=== PATIENT | female | born 1960 | race Caucasian/White ===

== ENCOUNTER 2019-10-19 10:11 | Inpatient (IN) | payer BC, SELFPAY ==
[2019-10-19] MEDS ORDERED: Lorazepam 2 MG/ML VIAL ONE (10:20)
[2019-10-19 10:42] LABS: #Basophils 0.1 thou/uL (0.0-0.2); #Eosinphils 0.3 thou/uL (0.0-0.7); #Lymphocytes 1.6 thou/uL (1.20-3.40); #Monocytes 0.6 thou/uL (0.11-0.59); #Neutrophils 5.6 thou/uL (1.40-6.50); %Basophils 1.2 % (0.0-1.0); %Eosinophils 4.2 % (0.0-10.0); %Lymphocytes 19.5 % (21.0-51.0); %Monocytes 6.8 % (0.0-10.0); %Neutrophils 68.3 % (42.0-75.0); Hemoglobin 11.5 g/dL (12.0-16.0); Mean Corpuscular HGB CONC 32.7 g/dL (32.0-36.0); Mean Corpuscular Hemoglobin 30.5 pg (27.0-31.0); Mean Corpuscular Volume 93.1 fL (78.0-98.0); Mean Platelet Volume 7.2 fL (7.4-10.4); Platelet Count 289 thou/uL (130-400); RBC Distribution Width 12.9 % (11.5-14.5); Red Blood Cell (RBC) Count 3.79 mill/uL (4.20-5.40); White Blood Cell (WBC) Count 8.2 thou/uL (4.8-10.8)
[2019-10-19 10:53] LABS: PTT 39.9 SEC (22.9-36.1); Prothrombin Time 12.7 SEC (12.0-14.7)
--- NOTE | 2019-10-19 10:58 | CT ---
CT ANGIOGRAM NECK WITH CONTRAST CT ANGIOGRAM BRAIN WITH CONTRAST: DATE: 10/19/2019 HISTORY: 58-year-old female with acute stroke: Dysarthria and left upper extremity weakness. Dr. Blanco verbally gave this stroke alert protocol report by telephone to Dr. Zaldivar at 10:55 AM 10/19/2019 TECHNIQUE: After IV contrast injection, arterial bolus chasing technique scan performed from AP window to vertex of head. Coronal and sagittal 3-D MIP reconstructions. FINDINGS: Brachiocephalic: No high-grade stenosis. Right subclavian: No high-grade stenosis. Right vertebral: Multifocal predominantly mild stenosis, including at the C6-7 level where there is m oderate stenosis. No high-grade stenosis. Right common carotid: No high-grade stenosis. Right internal carotid: Very tortuous. No significant stenosis at origin. Mild scattered calcified pl aque proximally. No high-grade stenosis., Including carotid siphon. Left subclavian: Extensive noncalcified atherosclerotic irregularity.. No severe stenosis identified. Mid and distal portions obscured by streak artifact from dense contrast material in the left subclavian vein. Left vertebral: No high-grade stenosis. Left common carotid: Origin and very proximal portion obscured by streak artifact from contrast mater ial in left brachiocephalic vein. No high-grade stenosis in the rest of the vessel. Left internal carotid: Tortuous. Scattered mild calcified plaque. No high-grade stenosis. Right MCA: M1 segment: No thrombosis or high-grade stenosis. Right PAULA: Patent A1 and A2 segments. Left MCA: M1 segment: No thrombus or high-grade stenosis. Left PAULA: Patent A1 and A2 segments. Intracranial vertebrals: No high-grade stenosis. Basilar: No high-grade stenosis. Bilateral fire management specialist: Patent P1 and P2 segments. Bilateral AICAs: Proximally patent. Bilateral PICA's: Proximally patent. There is a approximately 1.5 x 1 cm low-attenuation lesion in the anterior [place], at midline and to le ft of midline, consistent with infarction, presumably old. Small focal lacunar infarctions, at least most of which are old, involving right basal ganglia and an terior portion of right internal capsule, and left caudate body and [place] radiata. Approximately 60-75% partial opacification of right maxillary sinus. Osseous mural thickening of righ t maxillary sinus indicates that this is a chronic, long-standing process. IMPRESSION: 1) several lacunar infarctions in bilateral corpus striatum. At least most are probably old. Some on the left are age indeterminate. 2.) Moderate sized infarction of anterior upper hawa. 3) no occlusion or high-grade stenosis of major arteries of neck. 4) no thrombosis or occlusion of M1 segments of middle cerebral arteries. 5) chronic right maxillary sinusitis.
--- NOTE | 2019-10-19 10:59 | CT ---
CT BRAIN WITHOUT CONTRAST: HISTORY: Level I stroke alert. Left-sided weakness and slurred speech. COMPARISON: None. FINDINGS: There are small old infarctions in the right periventricular region adjacent to the frontal horn and right basal ganglia. There are changes of chronic small-vessel ischemic disease in the periventricul ar white matter. No evidence of acute infarct, hemorrhage, hemorrhage, midline shift, or abnormal extraaxial fluid col lections is seen. The ventricular size is normal and the basilar cisterns are patent. The bony calv arium is intact. There is mucosal disease in the paranasal sinuses. IMPRESSION: No CT evidence of acute intracranial process. Discussed over the telephone with ER physician, Dr. Percy Zaldivar, at 10:20 a.m. CODE CR POS: DAMIAN
[2019-10-19 11:07] LABS: ALT (SGPT) 16 U/L (8-55); AST (SGOT) 16 U/L (5-34); Albumin 3.9 g/dL (3.5-5.0); Alkaline Phosphatase 95 U/L (40-110); Anion Gap 10 mmol/L (10-20); BUN (Urea Nitrogen) 22 mg/dL (9.8-20.1); Bilirubin, Total 0.3 mg/dL (0.2-1.2); CK (CPK) 263 U/L (29-168); Calc. Creatinine Clearance 0 mL/min (70-130); Calcium 9.8 mg/dL (7.8-10.44); Carbon Dioxide 24 mmol/L (22-29); Chloride 110 mmol/L (98-107); Estimated GFR-MDRD 41; Globulin 2.5 g/dL (2.4-3.5); Glucose 105 mg/dL (70-105); Protein, Total 6.4 g/dL (6.0-8.3); Sodium 140 mmol/L (136-145)
--- NOTE | 2019-10-19 11:27 | RAD ---
PORTABLE CHEST 1 VIEW: DATE: 10/19/2019. TIME: 10:14 a.m. HISTORY: Level I stroke. Slurred speech. FINDINGS: Comparison is made with th exam of 03/05/2009. The heart size is borderline. The aorta is tortuous. The lungs are expanded without lobar consolidation, pneumothoraces, [place] pulmonary edema, or pleura l effusions. IMPRESSION: No acute process. POS: CORTEZ
[2019-10-19 11:33] LABS: Amphetamine Detected (NotDetected); Barbiturates Screen Not Detected (NotDetected); Benzodiazepine Screen Not Detected (NotDetected); Cocaine Metabolite Screen Not Detected (NotDetected); Medtox Control Line Valid? VALID (VALID); Medtox Reader # READER 4; Methadone Not Detected (NotDetected); Methamphetamine Detected (NotDetected); Opiate Screen Not Detected (NotDetected); Oxycodone Screen Not Detected (NotDetected); Phencyclidine (PCP) Not Detected (NotDetected); THC/Cannabinoid Screen Not Detected (NotDetected); Tricyclic Screen Not Detected (NotDetected)
[2019-10-19] MEDS ORDERED: Aspirin 300 MG Suppository ONE (12:12)
[2019-10-19] MEDS ORDERED: Iopamidol-370 76% 500 ML 1 ML ONE (13:47)
[2019-10-19] MEDS ORDERED: hydrALAZINE 20 MG/ML VIAL SLOW IVP PRN (14:49)
[2019-10-19 16:47] LABS: Troponin I 0.019 ng/mL (< 0.028)
[2019-10-19] MEDS: Sodium Chloride 0.9% 1,000 ML IV SCH (18:16)
[2019-10-19 21:29] LABS: Troponin I 0.032 ng/mL (< 0.028)
[2019-10-20] MEDS: Atorvastatin Calcium 40 MG TAB PO SCH ×2 (00:23→20:24)
[2019-10-20] MEDS ORDERED: Acetaminophen 650 MG Suppository PR PRN (02:39)
[2019-10-20] MEDS ORDERED: Lorazepam 2 MG/ML VIAL SLOW IVP SCH (02:45)
[2019-10-20 05:44] LABS: INR-International Normal Ratio 0.9; Prothrombin Time 12.3 SEC (12.0-14.7)
[2019-10-20 05:45] LABS: PTT 40.7 SEC (22.9-36.1)
[2019-10-20 06:04] LABS: Cardiac Risk 3.1 (Less than 4.5)
[2019-10-20] MEDS: Sodium Chloride 0.9% 1,000 ML IV SCH ×2 (07:07→22:02)
[2019-10-20] MEDS: Aspirin 325 mg Enteric Coated Tablet PO SCH (08:03)
[2019-10-20] MEDS: Enoxaparin Sodium 40 MG/0.4 ML SYRINGE SC SCH (08:06)
[2019-10-20] MEDS: Aspirin 300 MG Suppository PR SCH (08:06)
[2019-10-20] MEDS ORDERED: FLU VACC QS2019-20(6MOS UP)/PF 60 MCG/0.5 ML SYRINGE IM ONE (09:00)
--- NOTE | 2019-10-20 09:24 | CON ---
DATE OF CONSULTATION: 10/20/2019 CONSULTING PHYSICIAN: Hospitalist Services. 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 PLAN: 1. Echocardiogram. 2. MRI of the brain. 3. Aspirin and statin. 4. Discontinue methamphetamine use. HISTORY OF PRESENT ILLNESS: Ms. Chambers is a 58-year-old woman with past history of hypertension and prior stroke. She presented with a left-sided weakness and slurred speech and some vision distortion. Initial CT scan of the brain did not show any acute changes. She has some chronic lacunar infarctions present. CT angiogram did not show any stenosis of any significance. Laboratory studies were unremarkable other than a positive tox screen for methamphetamine. PAST MEDICAL HISTORY: Hypertension. ALLERGIES: PENICILLIN. SOCIAL HISTORY: As noted. FAMILY HISTORY: Noncontributory. REVIEW OF SYSTEMS: 10 system review of systems otherwise negative. PHYSICAL EXAMINATION: VITAL SIGNS: Blood pressure 159/85, pulse 62, respirations 14, temperature 98.0. HEENT: Pupils equal. Conjunctivae clear. NECK: Supple. EXTREMITIES: No cyanosis. NEUROLOGIC: She was alert and cooperative. Her speech was mildly dysarthric. She had a left facial droop. There was left-sided weakness. Gait was not tested. No abnormal movements were seen. EKG shows a sinus rhythm. SUMMARY: This is a middle-aged woman, who has hypertension and illicit drug use which has resulted in probable small-vessel stroke and left-sided weakness. Her workup is underway. Job ID: [id number]
--- NOTE | 2019-10-20 09:50 | HP ---
PRESENTING COMPLAINT: Left-sided weakness. HISTORY OF PRESENT ILLNESS: The patient with a past medical history of hypertension, history of CVA with right hemiparesis, hyperlipidemia, asthma, who was seen last night normal, had also slurred speech last night, but woke up with left-sided weakness and brought to the hospital. The patient had left-sided weakness and CT brain showed right-sided multiple infarcts, the patient out of the window and was having complaints this morning. No tPA was offered by ED physician. The patient admitted for further evaluation. The patient complains of cough, also failed swallow evaluation. Complains of swallowing difficulty. Denies any headache or dizziness. Denies nausea, vomiting, diarrhea, or constipation. Denies any chest pain. Complains of shortness of breath. Initial workup in the emergency room, CT brain was negative for acute findings. CTA of brain positive for several lacunar infarctions in bilateral corpus striatum, at least most probably old. Some of the left are age-indeterminate, moderate-sized infarction of anterior upper celest[place]. No occlusion or high-grade stenosis of major arteries of the neck. No thrombosis or occlusion of the M1 segment, middle cerebral arteries. Chronic right maxillary sinusitis. The patient being admitted for further evaluation. REVIEW OF SYSTEMS: As mentioned above in the HPI. All other systems are negative. PAST MEDICAL HISTORY: As mentioned above in the HPI. PAST SURGICAL HISTORY: History of tubal ligation. SOCIAL HISTORY: The patient is an active smoker, smokes half pack a day. Denies any alcohol abuse. Also using crystal . ALLERGIES: TO PENICILLIN. HOME MEDICATIONS: List currently unavailable. OBJECTIVE: VITAL SIGNS: Blood pressure 177/97, pulse 85, respiration 20, oxygen saturation 95 to 97%. Temperature 97.8. GENERAL: The patient lying in bed with left possible facial droop, tongue deviated towards the right side. NECK: Supple. No JVD. No lymphadenopathy. CHEST: Normal vesicular breathing. No rhonchi. No wheezing. HEART: Sounds normal. No murmur or gallop. No rub. ABDOMEN: Soft, benign, and nontender. No visceromegaly. EXTREMITIES: Negative edema of feet; power, left facial droop with left-sided weakness. EKG, normal sinus rhythm, heart rate 89 per minute, T-wave inversions in lateral leads. Nonspecific ST EKG changes. LABORATORY DATA: CBC unremarkable except hemoglobin 11.5, INR 1.0. CMP unremarkable except creatinine of 1.32, baseline creatinine of 0.93; BUN 22, CPK 263. Troponin negative. CBC unremarkable. Urine toxicology positive for amphetamines. UA negative. INR 1.0. CT robinson of [place], several lacunar infarctions in bilateral corpus striatum, at least most probably old. Some of the left are age indeterminate, moderate-sized infarction of anterior upper celestino. No occlusion or high-grade stenosis of the major arteries of the neck. No thrombosis or occlusion of M1 segment or middle cerebral arteries. IMPRESSION: 1. Acute cerebrovascular accident with left hemiparesis. The patient has a history of cerebrovascular accident with right hemiparesis in the past. CT brain negative for acute findings. CTA positive for several lacunar infarctions in bilateral corpus striatum, some of the left are age-indeterminate. We will continue aspirin and statins. Neuro checks, tele monitoring, and echocardiogram. The patient failed swallow evaluation. We will continue IV fluids. Continue aspirin. Repeat speech and swallow evaluation in the morning. 2. History of cerebrovascular accident with right hemiparesis. Continue antiplatelet therapy. Continue supportive care. 3. Hypertension. We will liberate blood pressure at present. We will treat only for more than 220/110. 4. Hyperlipidemia. Continue statin. 5. History of asthma, currently looks compensated. We will use DuoNeb as needed. 6. Deep venous thrombosis and gastrointestinal prophylaxis. PLAN: Discussed with the nursing staff. Job ID: [id number]
--- NOTE | 2019-10-20 11:56 | MRI ---
MRI BRAIN WITHOUT CONTRAST: HISTORY: Slurred speech and left-sided weakness. Previous stroke with residual right arm weakness CORRELATION: CT scan from 10/19/2019 . FINDINGS: Exam is limited due to motion artifact. There is a small focus of restricted diffusion in the left caudate head. There are multiple foci of T 2 prolongation in the periventricular white matter, consistent with chronic small vessel ischemic disease. The ventricular size is appropriate and the basilar cisterns are patent. No evidence of acute transcortical infarct, hemorrhage, midline shift or abnormal extra-axial fluid c ollections is seen. There is mucosal disease in the paranasal sinuses. IMPRESSION: Acute lacunar infarction in the left basal ganglia
--- NOTE | 2019-10-20 15:38 | PDOC.HOSPP ---
- Subjective Encounter Date: 10/20/19 Encounter Time: 15:38 Subjective: Pt seen for followup re: ischemic CVA. c/o LUE and LLE weakness. - Objective Vital Signs & Weight: Vital Signs (12 hours) Temp Pulse Pulse Pulse Pulse Resp BP 10/20/19 11:00 98.1 F 59 L 12 10/20/19 09:42 61 73 61 173/91 H 10/20/19 07:12 98.0 F 62 14 BP BP BP Pulse Ox 10/20/19 11:00 184/91 H 95 10/20/19 09:42 184/93 H 189/88 H 10/20/19 07:12 159/85 H 94 L Weight Admit Weight 182 lb 6.4 oz Weight 181 lb I&O: 10/19/19 10/20/19 10/21/19 06:59 06:59 07:59 Intake Total 825 Output Total 550 Balance 275 Result Diagrams: 10/19/19 10:34 10/19/19 10:34 Additional Labs: Labs and MARs reviewed by me EKG Reviewed by me: Yes (Tele: NSR) Hospitalist ROS - Review of Systems Constitutional: reports: weakness. denies: fever, chills, sweats, malaise Respiratory: denies: cough, shortness of breath, SOB with excertion, pleuritic pain, wheezing Cardiovascular: denies: chest pain, palpitations, orthopnea, paroxysmal noc. dyspnea, edema, light headedness Gastrointestinal: denies: nausea, vomiting, abdominal pain, diarrhea, constipation, melena, hematochezia Genitourinary: denies: dysuria, frequency, incontinence, hematuria, retention Musculoskeletal: denies: neck pain, shoulder pain, arm pain, back pain, hand pain, leg pain, foot pain Neurological: reports: weakness - Medication Medications: Active Medications Generic Name Dose Route Start Last Admin Trade Name Freq PRN Reason Stop Dose Admin Acetaminophen 650 mg 10/20/19 02:39 10/20/19 03:28 Tylenol MN 650 mg Q6H PRN Administration Pain Aspirin 300 mg 10/20/19 09:00 10/20/19 08:06 Aspirin MN 300 mg DAILY CURLY Administration Aspirin 325 mg 10/20/19 09:00 10/20/19 08:03 Ecotrin PO Not Given DAILY CURLY Atorvastatin Calcium 80 mg 10/19/19 21:00 10/20/19 00:23 Lipitor PO Not Given HS CURLY Enoxaparin Sodium 40 mg 10/20/19 09:00 10/20/19 08:06 Lovenox SC 40 mg 0900 CURLY Administration Sodium Chloride 1,000 mls @ 75 mls/hr 10/19/19 15:00 10/20/19 07:07 Normal Saline 0.9% IV 1,000 mls .[id number] CURLY Administration Lorazepam 1 mg 10/20/19 02:45 10/20/19 10:48 Ativan SLOW IVP 10/20/19 20:00 1 mg WILLCALL CURLY Administration - Exam General Appearance: awake alert Eye: anicteric sclera ENT: normocephalic atraumatic Neck: supple, symmetric, no thyromegaly, no lymphadenopathy Heart: RRR, no gallops, no rubs, normal peripheral pulses Respiratory: CTAB, no wheezes, no rales, no ronchi, normal chest expansion Gastrointestinal: soft, non-tender, non-distended, normal bowel sounds Extremities: no cyanosis Neurological - other findings: L sided weakness Psychiatric: normal affect, normal behavior, oriented to person, oriented to place Hosp A/P (1) Neurologic deficit due to acute ischemic cerebrovascular accident (CVA) Code(s): I63.9 - CEREBRAL INFARCTION, UNSPECIFIED; R29.818 - OTHER SYMPTOMS AND SIGNS INVOLVING THE NERVOUS SYSTEM Status: Acute (2) HTN (hypertension) Code(s): I10 - ESSENTIAL (PRIMARY) HYPERTENSION Status: Chronic (3) Dyslipidemia Code(s): E78.5 - HYPERLIPIDEMIA, UNSPECIFIED Status: Chronic (4) Methamphetamine use Code(s): F15.10 - OTHER STIMULANT ABUSE, UNCOMPLICATED Status: Chronic - Plan PT/OT, speech therapy continue aspirin atorvastatin dose increased to 80 mg daily Monitor vital signs, titrate antihypertensives as needed. 2D echo result pending. Family updated by bedside. Pt counseled re; recreational drug use.
[2019-10-21] MEDS: Enoxaparin Sodium 40 MG/0.4 ML SYRINGE SC SCH (08:38)
[2019-10-21] MEDS: Aspirin 325 mg Enteric Coated Tablet PO SCH (08:39)
[2019-10-21] MEDS: Aspirin 300 MG Suppository PR SCH (08:39)
[2019-10-21] MEDS ORDERED: hydrALAZINE 25 MG TAB PO SCH (12:30)
[2019-10-21] MEDS ORDERED: Amlodipine 10 MG TAB PO SCH (12:30)
--- NOTE | 2019-10-21 12:35 | PDOC.HOSPP ---
- Subjective Encounter Date: 10/21/19 Encounter Time: 07:00 Subjective: Pt seen for followup re: CVA. c/o ongoing left-sided weakness. NPO this morning. - Objective Vital Signs & Weight: Vital Signs (12 hours) Temp Pulse Resp BP Pulse Ox 10/21/19 11:28 98.4 F 65 17 193/95 H 95 10/21/19 07:08 98.8 F 65 14 165/87 H 94 L 10/21/19 03:26 97.9 F 72 18 164/84 H 94 L Weight Admit Weight 182 lb 6.4 oz Weight 182 lb 9.6 oz I&O: 10/20/19 10/21/19 10/22/19 05:59 06:59 06:59 Intake Total Output Total Balance Result Diagrams: 10/19/19 10:34 10/19/19 10:34 Additional Labs: Labs and MARs reviewed by me EKG Reviewed by me: Yes (Tele: NSR) Hospitalist ROS - Review of Systems Respiratory: denies: cough, shortness of breath, SOB with excertion, pleuritic pain Cardiovascular: denies: chest pain, palpitations, orthopnea, paroxysmal noc. dyspnea, edema, light headedness Gastrointestinal: denies: nausea, vomiting, abdominal pain, diarrhea, constipation, melena, hematochezia Genitourinary: denies: dysuria, frequency, incontinence, hematuria, retention Skin: denies: rash, lesions, tl, bruising Neurological: reports: weakness. denies: numbness, incoordination, change in speech, confusion, seizures - Medication Medications: Active Medications Generic Name Dose Route Start Last Admin Trade Name [place] PRN Reason Stop Dose Admin Acetaminophen 650 mg 10/20/19 02:39 10/20/19 03:28 Tylenol MD 650 mg Q6H PRN Administration Pain Aspirin 325 mg 10/20/19 09:00 10/21/19 08:39 Ecotrin PO Not Given DAILY CURLY Atorvastatin Calcium 80 mg 10/19/19 21:00 10/20/19 20:24 Lipitor PO Not Given HS CURLY Enoxaparin Sodium 40 mg 10/20/19 09:00 10/21/19 08:38 Lovenox SC 40 mg 0900 CURLY Administration Sodium Chloride 1,000 mls @ 75 mls/hr 10/19/19 15:00 10/20/19 22:02 Normal Saline 0.9% IV 1,000 mls .[id number] CURLY Administration - Exam General Appearance: awake alert Eye: anicteric sclera ENT: moist mucosa Neck: supple, no JVD, no thyromegaly, no lymphadenopathy Heart: RRR, no gallops, no rubs, normal peripheral pulses Respiratory: CTAB, no wheezes, no rales, no ronchi, normal chest expansion, no tachypnea Extremities: no clubbing Musculoskeletal: no muscle wasting Musculoskeletal - other findings: LUE and LLE weakness Psychiatric: normal affect, normal behavior, oriented to person, oriented to place Hosp A/P (1) Neurologic deficit due to acute ischemic cerebrovascular accident (CVA) Code(s): I63.9 - CEREBRAL INFARCTION, UNSPECIFIED; R29.818 - OTHER SYMPTOMS AND SIGNS INVOLVING THE NERVOUS SYSTEM Status: Acute (2) HTN (hypertension) Code(s): I10 - ESSENTIAL (PRIMARY) HYPERTENSION Status: Chronic (3) Dyslipidemia Code(s): E78.5 - HYPERLIPIDEMIA, UNSPECIFIED Status: Chronic (4) Methamphetamine use Code(s): F15.10 - OTHER STIMULANT ABUSE, UNCOMPLICATED Status: Chronic - Plan PT/OT, out of bed/ambulate, DVT proph w/lovenox, DVT proph w/SCDs continue aspirin and atorvastatin Add PRN IV labetalol, continue PRN IV hydralazine. LV EF 50-55%, grade 1/3 diastolic dysfunction.
[2019-10-21] MEDS ORDERED: Labetalol HCl 100 MG/20 ML VIAL SLOW IVP PRN (12:36)
[2019-10-21] MEDS: Sodium Chloride 0.9% 1,000 ML IV SCH (12:42)
[2019-10-21] MEDS: Atorvastatin Calcium 40 MG TAB PO SCH (20:52)
[2019-10-21] MEDS: hydrALAZINE 25 MG TAB PO SCH (20:53)
[2019-10-22] MEDS: Sodium Chloride 0.9% 1,000 ML IV SCH ×3 (02:06→21:31)
[2019-10-22] MEDS: hydrALAZINE 25 MG TAB PO SCH ×2 (09:11→21:21)
[2019-10-22] MEDS: Amlodipine 10 MG TAB PO SCH (09:11)
[2019-10-22] MEDS: Aspirin 325 mg Enteric Coated Tablet PO SCH (09:12)
[2019-10-22] MEDS: Enoxaparin Sodium 40 MG/0.4 ML SYRINGE SC SCH (09:12)
--- NOTE | 2019-10-22 13:27 | PDOC.HOSPP ---
- Subjective Encounter Date: 10/22/19 Encounter Time: 07:00 Subjective: Pt seen for followup re: CVA. Reports less weakness in LLE. - Objective Vital Signs & Weight: Vital Signs (12 hours) Temp Pulse Pulse Pulse Resp BP BP 10/22/19 12:19 99.1 F 66 15 10/22/19 10:00 67 10/22/19 09:44 67 69 166/95 H 10/22/19 09:11 63 181/106 H 10/22/19 07:23 99.3 F 63 17 10/22/19 03:02 98.5 F 69 18 BP BP BP BP Pulse Ox 10/22/19 12:19 149/72 H 94 L 10/22/19 10:00 166/95 H 10/22/19 09:44 159/98 H 10/22/19 09:11 10/22/19 07:23 181/106 H 98 10/22/19 03:02 133/71 95 Weight Admit Weight 182 lb 6.4 oz Weight 182 lb 9.6 oz I&O: 10/21/19 10/22/19 10/23/19 06:59 06:59 06:59 Intake Total 1740 120 Output Total 2300 300 Balance -560 -180 Result Diagrams: 10/19/19 10:34 10/19/19 10:34 Additional Labs: Labs and MARs reviewed by me EKG Reviewed by me: Yes (Tele: NSR) Hospitalist ROS - Review of Systems Constitutional: denies: fever, chills, sweats, weakness, malaise Cardiovascular: denies: chest pain, palpitations, orthopnea, paroxysmal noc. dyspnea, edema, light headedness Gastrointestinal: denies: nausea, vomiting, abdominal pain, diarrhea, constipation, melena, hematochezia Skin: denies: rash, lesions, tl, bruising Neurological: reports: weakness - Medication Medications: Active Medications Generic Name Dose Route Start Last Admin Trade Name Freq PRN Reason Stop Dose Admin Acetaminophen 650 mg 10/20/19 02:39 10/20/19 03:28 Tylenol MS 650 mg Q6H PRN Administration Pain Amlodipine Besylate 10 mg 10/22/19 09:00 10/22/19 09:11 Norvasc PO 10 mg DAILY CURLY Administration Aspirin 325 mg 10/20/19 09:00 10/22/19 09:12 Ecotrin PO 325 mg DAILY CURLY Administration Atorvastatin Calcium 80 mg 10/19/19 21:00 10/21/19 20:52 Lipitor PO 80 mg HS CURLY Administration Enoxaparin Sodium 40 mg 10/20/19 09:00 10/22/19 09:12 Lovenox SC 40 mg 0900 CURLY Administration Hydralazine HCl 50 mg 10/21/19 21:00 10/22/19 09:11 Apresoline PO 50 mg BID CURLY Administration Sodium Chloride 1,000 mls @ 75 mls/hr 10/19/19 15:00 10/22/19 02:06 Normal Saline 0.9% IV 1,000 mls .[id number] CURLY Administration - Exam General Appearance: awake alert Eye: anicteric sclera ENT: no oropharyngeal lesions Neck: supple, no JVD, no thyromegaly, no lymphadenopathy Heart: RRR, no gallops, no rubs, normal peripheral pulses Respiratory: CTAB, no wheezes, no rales, no ronchi, normal chest expansion Gastrointestinal: soft, non-tender, non-distended, normal bowel sounds Neurological - other findings: LUE and LLE weakness Psychiatric: normal affect, normal behavior, oriented to person, oriented to place Hosp A/P (1) Neurologic deficit due to acute ischemic cerebrovascular accident (CVA) Code(s): I63.9 - CEREBRAL INFARCTION, UNSPECIFIED; R29.818 - OTHER SYMPTOMS AND SIGNS INVOLVING THE NERVOUS SYSTEM Status: Acute (2) HTN (hypertension) Code(s): I10 - ESSENTIAL (PRIMARY) HYPERTENSION Status: Chronic (3) Dyslipidemia Code(s): E78.5 - HYPERLIPIDEMIA, UNSPECIFIED Status: Chronic (4) Methamphetamine use Code(s): F15.10 - OTHER STIMULANT ABUSE, UNCOMPLICATED Status: Chronic - Plan Pt is on aspirin and atorvastatin HTN improved LV EF 50-55%, grade 1/3 diastolic dysfunction. PT/OT/ST
--- NOTE | 2019-10-22 14:02 | RAD ---
MODIFIED BARIUM SWALLOW IN PRESENCE OF SPEECH THERAPIST: HISTORY: Dysphagia, feeding difficulties FINDINGS: There is laryngeal penetration and aspiration with thin liquids No persistent pooling of contrast is seen in the valleculae or piriform sinuses. Premature spilling of contrast is seen. Please see recommendations of the speech therapist for further management.
[2019-10-22] MEDS: Atorvastatin Calcium 40 MG TAB PO SCH (21:21)
[2019-10-23] MEDS: Amlodipine 10 MG TAB PO SCH (09:53)
[2019-10-23] MEDS: Aspirin 325 mg Enteric Coated Tablet PO SCH (09:54)
[2019-10-23] MEDS: Enoxaparin Sodium 40 MG/0.4 ML SYRINGE SC SCH (09:54)
[2019-10-23] MEDS: hydrALAZINE 25 MG TAB PO SCH ×2 (09:54→20:47)
[2019-10-23] MEDS ORDERED: hydrALAZINE 25 MG TAB PO SCH (14:00)
--- NOTE | 2019-10-23 14:27 | PDOC.HOSPP ---
- Subjective Encounter Date: 10/23/19 Encounter Time: 07:00 Subjective: Pt seen for followup re: acute ischemic CVA. Feels slightly better today. - Objective Vital Signs & Weight: Vital Signs (12 hours) Temp Pulse Pulse Pulse Resp BP BP 10/23/19 11:18 98.3 F 14 10/23/19 11:00 62 10/23/19 09:54 63 186/88 H 10/23/19 09:53 63 186/88 H 10/23/19 09:20 63 64 186/88 H 10/23/19 07:11 98.6 F 60 14 10/23/19 03:05 98 F 60 18 BP BP BP Pulse Ox 10/23/19 11:18 172/95 H 97 10/23/19 11:00 167/89 H 10/23/19 09:54 10/23/19 09:53 10/23/19 09:20 172/95 H 10/23/19 07:11 168/95 H 98 10/23/19 03:05 162/66 H 96 Weight Admit Weight 182 lb 6.4 oz Weight 182 lb 8 oz I&O: 10/22/19 10/23/19 10/24/19 06:59 06:59 06:59 Intake Total 1740 2880 240 Output Total 2300 1700 Balance -560 1180 240 Result Diagrams: 10/19/19 10:34 10/19/19 10:34 Additional Labs: Labs and MARs reviewed by me EKG Reviewed by me: Yes (Tele: NSR) Hospitalist ROS - Review of Systems Constitutional: reports: weakness Cardiovascular: denies: chest pain, palpitations, orthopnea, paroxysmal noc. dyspnea, edema Skin: denies: rash, lesions, tl, bruising Neurological: reports: weakness - Medication Medications: Active Medications Generic Name Dose Route Start Last Admin Trade Name Freq PRN Reason Stop Dose Admin Acetaminophen 650 mg 10/20/19 02:39 10/20/19 03:28 Tylenol IN 650 mg Q6H PRN Administration Pain Amlodipine Besylate 10 mg 10/22/19 09:00 10/23/19 09:53 Norvasc PO 10 mg DAILY CURLY Administration Aspirin 325 mg 10/20/19 09:00 10/23/19 09:54 Ecotrin PO 325 mg DAILY CURLY Administration Atorvastatin Calcium 80 mg 10/19/19 21:00 10/22/19 21:21 Lipitor PO 80 mg HS CURLY Administration Enoxaparin Sodium 40 mg 10/20/19 09:00 10/23/19 09:54 Lovenox SC 40 mg 0900 CURLY Administration Hydralazine HCl 50 mg 10/21/19 21:00 10/23/19 09:54 Apresoline PO 50 mg BID CURLY Administration Labetalol HCl 10 mg 10/21/19 12:36 10/22/19 21:31 Normodyne SLOW IVP 10 mg Q4H PRN Administration SBP Greater Than 180 - Exam General Appearance: awake alert Eye: anicteric sclera ENT: moist mucosa Neck: supple Heart: RRR Respiratory: CTAB Gastrointestinal: soft, non-tender Extremities: no clubbing Neurological: hemiplegia Psychiatric: normal affect, normal behavior Hosp A/P (1) Neurologic deficit due to acute ischemic cerebrovascular accident (CVA) Code(s): I63.9 - CEREBRAL INFARCTION, UNSPECIFIED; R29.818 - OTHER SYMPTOMS AND SIGNS INVOLVING THE NERVOUS SYSTEM Status: Acute (2) HTN (hypertension) Code(s): I10 - ESSENTIAL (PRIMARY) HYPERTENSION Status: Chronic (3) Dyslipidemia Code(s): E78.5 - HYPERLIPIDEMIA, UNSPECIFIED Status: Chronic (4) Methamphetamine use Code(s): F15.10 - OTHER STIMULANT ABUSE, UNCOMPLICATED Status: Chronic - Plan Mild improvement today. Continue aspirin and atorvastatin Pt able to take oral medications today. Resume hydralazine. PT/OT/ST Family updated by bedside.
[2019-10-23] MEDS: Atorvastatin Calcium 40 MG TAB PO SCH (20:47)
[2019-10-24 08:10] LABS: #Eosinphils 0.7 thou/uL (0.0-0.7); #Lymphocytes 1.5 thou/uL (1.20-3.40); #Monocytes 0.5 thou/uL (0.11-0.59); #Neutrophils 3.8 thou/uL (1.40-6.50); %Basophils 0.5 % (0.0-1.0); %Eosinophils 10.3 % (0.0-10.0); %Lymphocytes 23.4 % (21.0-51.0); %Monocytes 7.4 % (0.0-10.0); %Neutrophils 58.4 % (42.0-75.0); Hemoglobin 12.2 g/dL (12.0-16.0); Mean Corpuscular HGB CONC 31.4 g/dL (32.0-36.0); Mean Corpuscular Hemoglobin 29.2 pg (27.0-31.0); Mean Corpuscular Volume 93.2 fL (78.0-98.0); Mean Platelet Volume 7.9 fL (7.4-10.4); Platelet Count 262 thou/uL (130-400); Red Blood Cell (RBC) Count 4.18 mill/uL (4.20-5.40); White Blood Cell (WBC) Count 6.5 thou/uL (4.8-10.8)
[2019-10-24 08:30] LABS: Anion Gap 13 mmol/L (10-20); BUN (Urea Nitrogen) 22 mg/dL (9.8-20.1); Calc. Creatinine Clearance 67 mL/min (70-130); Carbon Dioxide 22 mmol/L (22-29); Chloride 108 mmol/L (98-107); Estimated GFR-MDRD 47; Glucose 87 mg/dL (70-105); Sodium 139 mmol/L (136-145)
[2019-10-24] MEDS: Amlodipine 10 MG TAB PO SCH (09:42)
[2019-10-24] MEDS: hydrALAZINE 25 MG TAB PO SCH ×2 (09:43→22:01)
[2019-10-24] MEDS: Aspirin 325 mg Enteric Coated Tablet PO SCH (09:43)
[2019-10-24] MEDS: Enoxaparin Sodium 40 MG/0.4 ML SYRINGE SC SCH (09:43)
--- NOTE | 2019-10-24 18:30 | PDOC.HOSPP ---
- Subjective Encounter Date: 10/24/19 Encounter Time: 08:00 Subjective: Pt seen for followup re: CVA. Able to lift LUE and LLE off of bed today. - Objective Vital Signs & Weight: Vital Signs (12 hours) Temp Pulse Resp BP BP BP Pulse Ox 10/24/19 15:38 98.4 F 63 16 133/85 94 L 10/24/19 11:49 98.4 F 74 16 149/99 H 94 L 10/24/19 10:14 152/100 H 10/24/19 09:43 66 147/86 H 10/24/19 09:42 66 147/86 H 10/24/19 08:42 93 L Weight Admit Weight 182 lb 6.4 oz Weight 182 lb 4.8 oz I&O: 10/23/19 10/24/19 10/25/19 06:59 06:59 06:59 Intake Total 2880 480 Output Total 1700 400 Balance 1180 480 -400 Result Diagrams: 10/24/19 07:39 10/24/19 07:39 Additional Labs: Labs and MARs reviewed by me EKG Reviewed by me: Yes (Tele: NSR) Hospitalist ROS - Review of Systems Genitourinary: denies: dysuria, frequency, incontinence, hematuria, retention Neurological: reports: weakness. denies: numbness, incoordination, change in speech, confusion, seizures - Medication Medications: Active Medications Generic Name Dose Route Start Last Admin Trade Name Freq PRN Reason Stop Dose Admin Acetaminophen 650 mg 10/20/19 02:39 10/20/19 03:28 Tylenol MI 650 mg Q6H PRN Administration Pain Amlodipine Besylate 10 mg 10/22/19 09:00 10/24/19 09:42 Norvasc PO 10 mg DAILY CURLY Administration Aspirin 325 mg 10/20/19 09:00 10/24/19 09:43 Ecotrin PO 325 mg DAILY CURLY Administration Atorvastatin Calcium 80 mg 10/19/19 21:00 10/23/19 20:47 Lipitor PO 80 mg HS CURLY Administration Enoxaparin Sodium 40 mg 10/20/19 09:00 10/24/19 09:43 Lovenox SC 40 mg 0900 CURLY Administration Hydralazine HCl 50 mg 10/21/19 21:00 10/24/19 09:43 Apresoline PO 50 mg BID CURLY Administration Labetalol HCl 10 mg 10/21/19 12:36 10/22/19 21:31 Normodyne SLOW IVP 10 mg Q4H PRN Administration SBP Greater Than 180 - Exam General Appearance: NAD ENT: normocephalic atraumatic Neck: supple Heart: RRR Respiratory: CTAB Gastrointestinal: soft, non-tender Neurological - other findings: LUE and LLE weakness improving Musculoskeletal: normal tone, normal strength Psychiatric: normal affect, normal behavior Hosp A/P (1) Neurologic deficit due to acute ischemic cerebrovascular accident (CVA) Code(s): I63.9 - CEREBRAL INFARCTION, UNSPECIFIED; R29.818 - OTHER SYMPTOMS AND SIGNS INVOLVING THE NERVOUS SYSTEM Status: Acute (2) HTN (hypertension) Code(s): I10 - ESSENTIAL (PRIMARY) HYPERTENSION Status: Chronic (3) Dyslipidemia Code(s): E78.5 - HYPERLIPIDEMIA, UNSPECIFIED Status: Chronic (4) 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 On aspirin and atorvastatin Continue hydralazine. PT/OT/ST Pt awaiting decision re: SNU placement
[2019-10-24] MEDS: Atorvastatin Calcium 40 MG TAB PO SCH (22:01)
[2019-10-25 05:12] LABS: #Eosinphils 0.6 thou/uL (0.0-0.7); #Lymphocytes 1.9 thou/uL (1.20-3.40); #Monocytes 0.5 thou/uL (0.11-0.59); %Basophils 0.2 % (0.0-1.0); %Eosinophils 8.2 % (0.0-10.0); %Lymphocytes 27.2 % (21.0-51.0); %Monocytes 7.5 % (0.0-10.0); %Neutrophils 56.9 % (42.0-75.0); Hemoglobin 12.1 g/dL (12.0-16.0); Mean Corpuscular HGB CONC 33.5 g/dL (32.0-36.0); Mean Corpuscular Hemoglobin 30.8 pg (27.0-31.0); Mean Corpuscular Volume 91.9 fL (78.0-98.0); Mean Platelet Volume 7.9 fL (7.4-10.4); Platelet Count 255 thou/uL (130-400); RBC Distribution Width 12.9 % (11.5-14.5); Red Blood Cell (RBC) Count 3.91 mill/uL (4.20-5.40)
[2019-10-25 05:40] LABS: Anion Gap 13 mmol/L (10-20); BUN (Urea Nitrogen) 37 mg/dL (9.8-20.1); Calc. Creatinine Clearance 57 mL/min (70-130); Carbon Dioxide 24 mmol/L (22-29); Chloride 109 mmol/L (98-107); Estimated GFR-MDRD 39; Glucose 96 mg/dL (70-105); Magnesium 2.3 mg/dL (1.6-2.6); Potassium 4.1 mmol/L (3.5-5.1); Sodium 142 mmol/L (136-145)
[2019-10-25] MEDS: hydrALAZINE 25 MG TAB PO SCH ×2 (09:17→21:41)
[2019-10-25] MEDS: Enoxaparin Sodium 40 MG/0.4 ML SYRINGE SC SCH (09:17)
[2019-10-25] MEDS: Amlodipine 10 MG TAB PO SCH (09:17)
[2019-10-25] MEDS: Aspirin 325 mg Enteric Coated Tablet PO SCH (09:17)
[2019-10-25] MEDS: Atorvastatin Calcium 40 MG TAB PO SCH (21:44)
--- NOTE | 2019-10-25 22:50 | PDOC.HOSPP ---
- Subjective Encounter Date: 10/25/19 Subjective: Doing well. No specific complaints. She says her mood is up and down. - Objective Vital Signs & Weight: Vital Signs (12 hours) Temp Pulse Resp BP BP BP Pulse Ox 10/25/19 21:41 69 159/93 H 10/25/19 19:18 97.8 F 65 16 148/88 H 97 10/25/19 16:00 98 F 62 20 150/84 H 96 10/25/19 11:22 97.8 F 86 20 151/93 H 99 Weight Admit Weight 182 lb 6.4 oz Weight 183 lb 3.2 oz I&O: 10/24/19 10/25/19 10/26/19 06:59 06:59 06:59 Intake Total 184 811 7882 Output Total 800 Balance 480 -650 1380 Result Diagrams: 10/25/19 04:57 10/25/19 04:57 Hospitalist ROS - Medication Medications: Active Medications Generic Name Dose Route Start Last Admin Trade Name Freq PRN Reason Stop Dose Admin Acetaminophen 650 mg 10/20/19 02:39 10/20/19 03:28 Tylenol SD 650 mg Q6H PRN Administration Pain Amlodipine Besylate 10 mg 10/22/19 09:00 10/25/19 09:17 Norvasc PO 10 mg DAILY CURLY Administration Aspirin 325 mg 10/20/19 09:00 10/25/19 09:17 Ecotrin PO 325 mg DAILY CURLY Administration Atorvastatin Calcium 80 mg 10/19/19 21:00 10/25/19 21:44 Lipitor PO 80 mg HS CURLY Administration Enoxaparin Sodium 40 mg 10/20/19 09:00 10/25/19 09:17 Lovenox SC 40 mg 0900 CURLY Administration Hydralazine HCl 50 mg 10/21/19 21:00 10/25/19 21:41 Apresoline PO 50 mg BID CURLY Administration Labetalol HCl 10 mg 10/21/19 12:36 10/22/19 21:31 Normodyne SLOW IVP 10 mg Q4H PRN Administration SBP Greater Than 180 - Exam General Appearance: NAD, awake alert Heart: RRR, no murmur, no gallops, no rubs, normal peripheral pulses Respiratory: CTAB, no wheezes, no rales, no ronchi, normal chest expansion, no tachypnea, normal percussion Gastrointestinal: soft, non-tender, non-distended, normal bowel sounds, no palpable masses, no hepatomegaly, no splenomegaly, no bruit Extremities: no cyanosis, no clubbing, no edema Neurological - other findings: Left-sided weakness. 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 Awaiting placement.
[2019-10-26] MEDS: Aspirin 325 mg Enteric Coated Tablet PO SCH (09:07)
[2019-10-26] MEDS: Enoxaparin Sodium 40 MG/0.4 ML SYRINGE SC SCH (09:07)
[2019-10-26] MEDS: Amlodipine 10 MG TAB PO SCH (09:07)
[2019-10-26] MEDS: hydrALAZINE 25 MG TAB PO SCH ×2 (09:08→21:45)
--- NOTE | 2019-10-26 15:49 | PDOC.HOSPP ---
- Subjective Encounter Date: 10/26/19 Subjective: About the same. Frustrated because she feels like she would be doing more at home than she is recommended to do here. Otherwise, eating and drinking well. No complaints. - Objective Vital Signs & Weight: Vital Signs (12 hours) Temp Pulse Pulse Pulse Resp BP BP 10/26/19 15:10 98.4 F 76 14 10/26/19 11:16 74 69 142/82 H 138/83 10/26/19 11:12 98.3 F 68 18 10/26/19 09:08 86 10/26/19 09:07 86 10/26/19 09:01 10/26/19 07:10 98.3 F 86 16 BP Pulse Ox 10/26/19 15:10 120/84 94 L 10/26/19 11:16 10/26/19 11:12 138/75 96 10/26/19 09:08 10/26/19 09:07 10/26/19 09:01 97 10/26/19 07:10 158/86 H 96 Weight Admit Weight 182 lb 6.4 oz Weight 184 lb 4.8 oz I&O: 10/25/19 10/26/19 10/27/19 06:59 06:59 06:59 Intake Total 150 1480 Output Total 800 350 700 Balance -650 1130 -700 Result Diagrams: 10/25/19 04:57 10/25/19 04:57 Hospitalist ROS - Medication Medications: Active Medications Generic Name Dose Route Start Last Admin Trade Name Freq PRN Reason Stop Dose Admin Acetaminophen 650 mg 10/20/19 02:39 10/20/19 03:28 Tylenol MO 650 mg Q6H PRN Administration Pain Amlodipine Besylate 10 mg 10/22/19 09:00 10/26/19 09:07 Norvasc PO 10 mg DAILY CURLY Administration Aspirin 325 mg 10/20/19 09:00 10/26/19 09:07 Ecotrin PO 325 mg DAILY CURLY Administration Atorvastatin Calcium 80 mg 10/19/19 21:00 10/25/19 21:44 Lipitor PO 80 mg HS CURLY Administration Enoxaparin Sodium 40 mg 10/20/19 09:00 10/26/19 09:07 Lovenox SC 40 mg 0900 CURLY Administration Hydralazine HCl 50 mg 10/21/19 21:00 10/26/19 09:08 Apresoline PO 50 mg BID CURLY Administration Labetalol HCl 10 mg 10/21/19 12:36 10/22/19 21:31 Normodyne SLOW IVP 10 mg Q4H PRN Administration SBP Greater Than 180 - Exam General Appearance: NAD, awake alert General - other findings: Mild dysarthria Heart: RRR, no murmur, no gallops, no rubs, normal peripheral pulses Respiratory: CTAB, no wheezes, no rales, no ronchi, normal chest expansion, no tachypnea, normal percussion Gastrointestinal: soft, non-tender, non-distended, normal bowel sounds, no palpable masses, no hepatomegaly, no splenomegaly, no bruit Extremities: no cyanosis, no clubbing, no edema Neurological - other findings: LLE and LUE with proximal movement. More distal paralysis. 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 Awaiting placement.
[2019-10-26] MEDS: Atorvastatin Calcium 40 MG TAB PO SCH (21:45)
[2019-10-27] MEDS: Amlodipine 10 MG TAB PO SCH (09:35)
[2019-10-27] MEDS: hydrALAZINE 25 MG TAB PO SCH ×2 (09:35→22:03)
[2019-10-27] MEDS: Enoxaparin Sodium 40 MG/0.4 ML SYRINGE SC SCH (09:36)
[2019-10-27] MEDS: Aspirin 325 mg Enteric Coated Tablet PO SCH (09:36)
[2019-10-27 10:19] VITALS: BMI 26.9
--- NOTE | 2019-10-27 14:29 | PDOC.HOSPP ---
- Subjective Encounter Date: 10/27/19 Encounter Time: 09:00 Subjective: no overnight events. This morning, laying comfortably in bed and has no complaints. - Objective Vital Signs & Weight: Vital Signs (12 hours) Temp Pulse Resp BP BP BP BP 10/27/19 11:18 98.3 F 72 18 129/80 10/27/19 09:35 59 L 159/97 H 10/27/19 07:47 97.9 F 59 L 18 159/97 H 10/27/19 02:50 98.2 F 64 16 156/107 H Pulse Ox 10/27/19 11:18 93 L 10/27/19 09:35 10/27/19 07:47 94 L 10/27/19 02:50 93 L Weight Admit Weight 182 lb 6.4 oz Weight 182 lb 3.2 oz I&O: 10/26/19 10/27/19 10/28/19 06:59 06:59 06:59 Intake Total 1480 120 Output Total 350 700 500 Balance 7893 -700 -063 Result Diagrams: 10/25/19 04:57 10/25/19 04:57 Hospitalist ROS - Review of Systems Constitutional: denies: fever, chills, sweats, weakness, malaise, other Eyes: denies: vision change Respiratory: denies: cough, dry, shortness of breath, hemoptysis, SOB with excertion, pleuritic pain, sputum Cardiovascular: denies: chest pain, palpitations, orthopnea Gastrointestinal: denies: nausea, vomiting, abdominal pain, diarrhea Genitourinary: denies: dysuria, frequency, incontinence, hematuria Neurological: denies: change in speech Other: baseline left sided weakness - Medication Medications: Active Medications Generic Name Dose Route Start Last Admin Trade Name Freq PRN Reason Stop Dose Admin Amlodipine Besylate 10 mg 10/22/19 09:00 10/27/19 09:35 Norvasc PO 10 mg DAILY CURLY Administration Aspirin 325 mg 10/20/19 09:00 10/27/19 09:36 Ecotrin PO 325 mg DAILY CURLY Administration Atorvastatin Calcium 80 mg 10/19/19 21:00 10/26/19 21:45 Lipitor PO 80 mg HS CURLY Administration Enoxaparin Sodium 40 mg 10/20/19 09:00 10/27/19 09:36 Lovenox SC 40 mg 0900 CURLY Administration Hydralazine HCl 50 mg 10/21/19 21:00 10/27/19 09:35 Apresoline PO 50 mg BID CURLY Administration - Exam General Appearance: NAD, awake alert Heart: RRR, no murmur, no gallops, no rubs Respiratory: CTAB, no wheezes, no rales, no ronchi Gastrointestinal: soft, non-tender, non-distended, normal bowel sounds Extremities: no edema Musculoskeletal - other findings: left sided: 3/5 both upper and lower extremity ; right sided: 5/5 throughout Psychiatric: normal affect, normal behavior, A&O x 3 Hosp A/P - Plan #CVA -currently at baseline neurologic state -on aspirin and high dose statin -pending MRI #HTN -above goal of <130/80 -neurologically stable -will adjust antiHTN to achieve goal gradually #VALERY/CKD -likely CKD considering amphetamine abuse and poorly controlled blood pressure; however, not enough data -most recent BUN/Cr >20, however less on presentation -will obtain microscopic urinalysis, fractional sodium -started IVF Disposition: pending placement
[2019-10-27] MEDS: Sodium Chloride 0.9% 1,000 ML IV SCH (15:36)
[2019-10-27 16:06] LABS: Bilirubin Negative (Negative); Blood, Urine Negative (Negative); Glucose, Urine (Dipstick) Negative (Negative); Leukocyte Negative (Negative); Nitrite Negative (Negative); Protein, Urine (Dipstick) Negative (Neg-Trace); Urobilinogen 0.2 mg/dL (Less than 2)
[2019-10-27 16:10] LABS: Calcium Oxalate Crystals Rare HPF (None Seen); Clarity Clear (Clear); RBC/HPF 0-3 HPF (0-3); Squamous Epithelial 0-3 HPF (0-3); WBC/HPF 0-3 HPF (0-3)
[2019-10-27 16:11] LABS: Bacteria/HPF 1+ HPF (None Seen)
[2019-10-27 16:25] LABS: Creatinine, Urine 47.14 mg/dL (47-110)
--- NOTE | 2019-10-27 19:24 | CON ---
DATE OF TELEMEDICINE CONSULTATION: 10/27/2019 CHIEF COMPLAINT: Speech problems and left-sided weakness. HISTORY OF PRESENT ILLNESS: The patient reports she developed speech problems and left-sided weakness, which is what prompted the hospital visit. The patient does not report any type of numbness or sensory symptoms. She has been admitted for the last week or so and has been seen by Dr. Oscar on October 19, at which time, he diagnosed her as having a stroke secondary to methamphetamine use. The patient admits to methamphetamine use and she states she takes it occasionally. She does have hypertension and thyroid dysfunction. FAMILY HISTORY: Her mother had a CVA at age 80. Father of cancer at 75. She has 2 brothers and a sister, all are healthy. One brother had cancer, but he survived. The patient has a daughter and 2 sons. SOCIAL HISTORY: She smoked, she stopped last week. She was smoking for 30 years. She does not drink alcohol. She does use drugs occasionally mostly amphetamine and she lives with her son. LABORATORY DATA: Her workup so far lab workup. White count 7.0, hemoglobin 12.1, hematocrit 35.9, platelet count 255. Chemistry; sodium 142, potassium 4.1, chloride 109, bicarb 24, BUN 37, creatinine 1.37, glucose 96. Lipid profile within normal limits. Toxicology positive for urine amphetamines and methamphetamine and UA is negative and her workup included an MRI of the brain, which was completed. MRI of the brain showed presence of acute lacunar infarct in the left basal ganglia. REVIEW OF SYSTEMS: PULMONARY: Negative for shortness of breath. GI: Negative for nausea, vomiting, or diarrhea. NEUROLOGIC: Positive for weakness. DERMATOLOGIC: Negative for any skin lesions or rash. OPHTHALMOLOGIC: Negative for vision problems. ENT: Negative for any hearing issues. PHYSICAL EXAMINATION: VITAL SIGNS: Temperature 98.6, pulse 66, blood pressure 157/86, respiratory rate 16. GENERAL APPEARANCE: Well-built, well-nourished lady, who is comfortable. She is edentulous. CHEST: Clear vesicular breathing. CARDIOVASCULAR: S1 and S2 heard. No murmurs. ABDOMEN: Soft. NEUROLOGIC: Higher intellectual functions, normal. Orientation to time, place , and person. Cranial nerves; pupils 2 mm bilaterally. She had mild facial asymmetry with left facial weakness. Sensory system was normal. Tongue midline. No atrophy noted. Normal elevation of palate. Normal hearing bilaterally. Normal extraocular movements. Motor bulk, normal. Tone normal. Strength 5/5 on the right side. On the left side, strength was 3/5 in the legs, 2/5 in the left upper extremity. Handgrip was at 50% on the left side. Deep tendon reflexes were diminished. Sensory, normal. Cerebellar, normal [id number] and [id number]. IMPRESSION: The patient is a 59-year-old lady with a history of hypertension and methamphetamine use. She does have a family history of stroke and examination showed left-sided weakness, which is persistent. Her MRI does show left basal ganglia event based on the MRI finding on 10/20/2019. She had acute lacune in the left basal ganglia, which does not explain the deficits that we are seeing of the left face, arm, and leg weakness, and I do not see much on the right side. At this time, the question seems to be about the localization of stroke. I suggested repeat MRI of the brain, which I requested. We will wait for the department to approve and complete that study. Her CT angiogram did not show any acute vascular issues that need to be addressed at this time, even though she has prior infarct and her echocardiogram was also completed and did not show any abnormalities. I suspect this is most likely a cerebrovascular accident from hypertension and methamphetamine sometimes a very small internal capsule event. It may not be visible on the MRI, but we will wait for the new MRI to be completed. I agree with aspirin and statin for stroke prophylaxis. Please call me if you have any further questions. Job ID: [id number] MTDD
[2019-10-27] MEDS: Atorvastatin Calcium 40 MG TAB PO SCH (22:03)
[2019-10-28] MEDS: Sodium Chloride 0.9% 1,000 ML IV SCH ×3 (03:03→16:58)
[2019-10-28] MEDS ORDERED: Cepastat Lozenges 1 LOZ PO PRN (04:22)
[2019-10-28 05:30] LABS: Anion Gap 13 mmol/L (10-20); BUN (Urea Nitrogen) 35 mg/dL (9.8-20.1); Calc. Creatinine Clearance 56 mL/min (70-130); Carbon Dioxide 26 mmol/L (22-29); Chloride 108 mmol/L (98-107); Estimated GFR-MDRD 39; Glucose 101 mg/dL (70-105); Potassium 4.1 mmol/L (3.5-5.1); Sodium 143 mmol/L (136-145)
[2019-10-28] MEDS: Aspirin 81 mg Enteric Coated Tablet PO SCH (08:28)
[2019-10-28] MEDS: Amlodipine 10 MG TAB PO SCH (08:28)
[2019-10-28] MEDS: hydrALAZINE 25 MG TAB PO SCH ×2 (08:28→20:24)
[2019-10-28] MEDS: Enoxaparin Sodium 40 MG/0.4 ML SYRINGE SC SCH (08:29)
[2019-10-28] MEDS ORDERED: Lorazepam 0.5 MG TAB PO PRN (09:26)
--- NOTE | 2019-10-28 10:58 | MRI ---
MRI brain noncontrast HISTORY: Left-sided weakness. CVA. COMPARISON: 10/20/2019. FINDINGS: Extensive motion artifact limits detail. On today's exam, no abnormal areas of restricted d iffusion are apparent. No focal lesion in area of tiny left basal ganglia infarct on the prior study. Encephalomalacia from an old infarct at the left anterior celestino is stable. A subtle 8 mm area of incre ased FLAIR signal within the right lower celestino is also unchanged. Gradient echo imaging performed on today's exam. There are multiple rounded and oval areas of bloomin g artifact within the basal ganglia and subependymoma white matter. Likely related to cavernomas or areas of old infarct. Prominent lobulated mucosal thickening now evident within each maxillary sinus. IMPRESSION: The tiny acute left basal ganglia infarct on the recent exam is no longer visible. No new intracranial abnormalities. Chronic-type findings are stable. Bilateral maxillary sinusitis.
--- NOTE | 2019-10-28 16:27 | PDOC.HOSPP ---
- Subjective Encounter Date: 10/28/19 Encounter Time: 14:00 Subjective: no overnight events. This afternon, came back from MRI scan and has no complaints. - Objective Vital Signs & Weight: Vital Signs (12 hours) Temp Pulse Resp BP Pulse Ox 10/28/19 15:26 98.4 F 78 15 156/95 H 95 10/28/19 11:26 98.3 F 87 14 97 10/28/19 08:00 98 10/28/19 07:26 14 150/75 H 98 10/28/19 04:35 82 21 H 95 Weight Admit Weight 182 lb 6.4 oz Weight 178 lb 9.6 oz I&O: 10/27/19 10/28/19 10/29/19 06:59 06:59 06:59 Intake Total 860 Output Total 700 1100 Balance -700 -240 Result Diagrams: 10/25/19 04:57 10/28/19 04:34 Hospitalist ROS - Review of Systems Constitutional: denies: fever, chills, sweats, weakness, malaise, other ENT: denies: nose pain, nose discharge, nose congestion Respiratory: denies: cough, dry, shortness of breath, pleuritic pain, sputum Cardiovascular: denies: chest pain, palpitations, orthopnea, paroxysmal noc. dyspnea, edema, light headedness Gastrointestinal: denies: nausea, vomiting, abdominal pain, diarrhea Neurological: reports: weakness (left sided, chronic) - Medication Medications: Active Medications Generic Name Dose Route Start Last Admin Trade Name Freq PRN Reason Stop Dose Admin Albuterol/Ipratropium 3 ml 10/22/19 01:29 10/28/19 04:35 Duoneb NEB 3 ml [id number] PRN Administration SOB &/or Wheezing Amlodipine Besylate 10 mg 10/22/19 09:00 10/28/19 08:28 Norvasc PO 10 mg DAILY CURLY Administration Aspirin 81 mg 10/28/19 09:00 10/28/19 08:28 Ecotrin PO 81 mg DAILY CURLY Administration Atorvastatin Calcium 80 mg 10/19/19 21:00 10/27/19 22:03 Lipitor PO 80 mg HS CURLY Administration Enoxaparin Sodium 40 mg 10/20/19 09:00 10/28/19 08:29 Lovenox SC 40 mg 0900 CURLY Administration Hydralazine HCl 50 mg 10/21/19 21:00 10/28/19 08:28 Apresoline PO 50 mg BID CURLY Administration Sodium Chloride 1,000 mls @ 100 mls/hr 10/27/19 14:45 10/28/19 14:33 Normal Saline 0.9% IV 1,000 mls .Q10H CURLY Administration Lorazepam 0.5 mg 10/28/19 09:26 10/28/19 10:06 Ativan PO 0.5 mg Q15M PRN Administration Anxiety - Exam General Appearance: NAD, awake alert Heart: RRR, no murmur, no gallops, no rubs, normal peripheral pulses Respiratory: CTAB, no wheezes, no rales, no ronchi, normal chest expansion, no tachypnea, normal percussion Gastrointestinal: soft, non-tender, non-distended, normal bowel sounds, no palpable masses, no hepatomegaly, no splenomegaly, no bruit Extremities: no edema Musculoskeletal - other findings: unchanged compared to yesterday Hosp A/P - Plan #CVA -currently at baseline neurologic state -on aspirin and high dose statin -pending MRI per neurology #HTN -above goal of <130/80 -neurologically stable -will adjust antiHTN to achieve goal gradually #VALERY/CKD -likely CKD considering amphetamine abuse and poorly controlled blood pressure; however, not enough data -most recent BUN/Cr >20, however less on presentation -microscopic urinalysis unremarkable, FNa > 2% suggesting intrinsic VALERY or CKD -renal US Disposition: pending placement
--- NOTE | 2019-10-28 18:39 | ULT ---
Renal ultrasound: 10/28/2019 COMPARISON:None available HISTORY:Evaluate for chronic kidney disease TECHNIQUE: Multiplanar grayscale sonographic imaging of the kidneys and urinary bladder obtained. FINDINGS: The right kidney .2 x 5.6 x 5.3 cm and demonstratesno renal mass, hydronephrosis, or stone. The left kidney measures9.0 x 5.0 x 4.9 cm and demonstratesno renal mass, hydronephrosis, or stone. The urinary bladderappears grossly unremarkable. IMPRESSION:Unremarkable renal ultrasound
[2019-10-28] MEDS: Atorvastatin Calcium 40 MG TAB PO SCH (20:24)
[2019-10-29] MEDS: Sodium Chloride 0.9% 1,000 ML IV SCH ×2 (04:05→21:25)
[2019-10-29 05:29] LABS: Anion Gap 12 mmol/L (10-20); BUN (Urea Nitrogen) 26 mg/dL (9.8-20.1); Calc. Creatinine Clearance 58 mL/min (70-130); Calcium 9.9 mg/dL (7.8-10.44); Carbon Dioxide 25 mmol/L (22-29); Chloride 109 mmol/L (98-107); Estimated GFR-MDRD 41; Glucose 92 mg/dL (70-105); Magnesium 2.1 mg/dL (1.6-2.6); Potassium 4.1 mmol/L (3.5-5.1); Sodium 142 mmol/L (136-145)
[2019-10-29] MEDS ORDERED: Acetaminophen 325 MG TAB PO SCH (08:45)
[2019-10-29] MEDS ORDERED: Lisinopril 10 MG TAB PO SCH (09:00)
[2019-10-29] MEDS: Amlodipine 10 MG TAB PO SCH (09:24)
[2019-10-29] MEDS: Aspirin 81 mg Enteric Coated Tablet PO SCH (09:25)
[2019-10-29] MEDS: hydrALAZINE 25 MG TAB PO SCH (09:25)
[2019-10-29] MEDS: Fluticasone Propionate Nasal Spray 16 gm Bottle NASAL SCH (09:25)
[2019-10-29] MEDS: Enoxaparin Sodium 40 MG/0.4 ML SYRINGE SC SCH (09:25)
--- NOTE | 2019-10-29 19:37 | PDOC.HOSPP ---
- Subjective Encounter Date: 10/29/19 Encounter Time: 10:00 Subjective: no overnight events and continues to feel well and use wheelchair around unit. Has no complaints. - Objective Vital Signs & Weight: Vital Signs (12 hours) Temp Pulse Pulse Resp BP BP Pulse Ox 10/29/19 15:38 98.1 F 60 16 137/74 94 L 10/29/19 11:38 98.2 F 63 20 159/84 H 96 10/29/19 08:47 69 154/94 H Weight Admit Weight 182 lb 6.4 oz Weight 182 lb I&O: 10/28/19 10/29/19 10/30/19 06:59 06:59 06:59 Intake Total 860 1500 2070 Output Total 1100 2100 1700 Balance -240 -600 370 Result Diagrams: 10/25/19 04:57 10/29/19 04:38 Hospitalist ROS - Review of Systems Constitutional: denies: fever, chills, sweats, weakness, malaise, other Respiratory: denies: cough, dry, shortness of breath, hemoptysis, SOB with excertion, pleuritic pain, sputum, wheezing, other Cardiovascular: denies: chest pain, palpitations, orthopnea, paroxysmal noc. dyspnea, edema, light headedness, other Gastrointestinal: denies: nausea, vomiting, abdominal pain, diarrhea, constipation, melena, hematochezia, other Genitourinary: denies: dysuria, frequency, incontinence, hematuria, retention, other Neurological: reports: weakness (chronic left sided weakness unchanged) - Medication Medications: Active Medications Generic Name Dose Route Start Last Admin Trade Name Freq PRN Reason Stop Dose Admin Albuterol/Ipratropium 3 ml 10/22/19 01:29 10/28/19 04:35 Duoneb NEB 3 ml [id number] PRN Administration SOB &/or Wheezing Amlodipine Besylate 10 mg 10/22/19 09:00 10/29/19 09:24 Norvasc PO 10 mg DAILY CURLY Administration Aspirin 81 mg 10/28/19 09:00 10/29/19 09:25 Ecotrin PO 81 mg DAILY CURLY Administration Atorvastatin Calcium 80 mg 10/19/19 21:00 10/28/19 20:24 Lipitor PO 80 mg HS CURLY Administration Enoxaparin Sodium 40 mg 10/20/19 09:00 10/29/19 09:25 Lovenox SC 40 mg 0900 CURLY Administration Fluticasone Propionate 0 gm 10/29/19 09:00 10/29/19 09:25 Flonase Nasal Merrick NASAL Not Given DAILY CURLY Hydralazine HCl 50 mg 10/21/19 21:00 10/29/19 09:25 Apresoline PO 50 mg BID CURLY Administration Sodium Chloride 1,000 mls @ 70 mls/hr 10/28/19 16:36 10/29/19 04:05 Normal Saline 0.9% IV 1,000 mls .[id number] CURLY Administration Lisinopril 10 mg 10/29/19 09:00 10/29/19 09:25 Zestril PO 10 mg DAILY CURLY Administration Lorazepam 0.5 mg 10/28/19 09:26 10/28/19 10:06 Ativan PO 0.5 mg Q15M PRN Administration Anxiety - Exam General Appearance: NAD, awake alert Heart: RRR, no murmur, no gallops, no rubs Respiratory: CTAB, no wheezes, no rales, no ronchi Gastrointestinal: soft, non-tender, non-distended, normal bowel sounds Extremities: no edema Neurological - other findings: unchanged Psychiatric: normal affect, normal behavior, A&O x 3 Hosp A/P - Plan #CVA -on aspirin and high dose statin -repeat MRI (10/27) showing no acute event; per neurology, cerebrovascular event likely due to metamphetamine use and grossly elevated BP -Will DC tomorrow; Home with home health since patient has no insurance -will live with brother #HTN -near goal of <130/80 -stop hydralazine -increase lisinopril to 20mg PO qd -continue amplodipine #CKD -likely CKD considering amphetamine abuse and poorly controlled blood pressure; however, not enough data -most recent BUN/Cr >20, however less on presentation -microscopic urinalysis unremarkable, FNa > 2% suggesting intrinsic VALERY or CKD Disposition: pending placement home with home health; will live with brother
[2019-10-29] MEDS: Atorvastatin Calcium 40 MG TAB PO SCH (21:03)
[2019-10-30] MEDS: Sodium Chloride 0.9% 1,000 ML IV SCH (05:54)
[2019-10-30] MEDS: Aspirin 81 mg Enteric Coated Tablet PO SCH (08:42)
[2019-10-30] MEDS: Enoxaparin Sodium 40 MG/0.4 ML SYRINGE SC SCH (08:42)
[2019-10-30] MEDS: Amlodipine 10 MG TAB PO SCH (08:44)
[2019-10-30] MEDS ORDERED: Lisinopril 20 MG TAB PO SCH (09:00)
[2019-10-30] MEDS: Fluticasone Propionate Nasal Spray 16 gm Bottle NASAL SCH (09:48)
[2019-10-30 11:53] VITALS: BP 147/90; TEMP 99.3
--- NOTE | 2019-10-31 13:50 | DIS ---
DATE OF ADMISSION: 10/19/2019 DATE OF DISCHARGE: 10/30/2019 HOSPITAL COURSE: Ms. 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 The patient underwent workup for stroke and received 2 brain MRIs, in which minimal acute changes were found. Per the patient, her weakness was on the left. 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 The patient did not have insurance or other means of receiving rehab even though she is recuperated well and per the patient was back at baseline. Second significant problem was hypertensive urgency or emergency concerning end-organ organ failure, namely the TIA. The patient was diagnosed with CKD after multiple studies showed that she may have a new baseline most likely due to poorly-controlled hypertension. For the TIA, the patient was discharged on aspirin and statin. For the hypertension, the patient was discharged on lisinopril and amlodipine. She was discharged home with home health. Until she finds a new primary care physician, I accepted the role of being her primary care physician. On the 31 of October, I received a phone call from the Home Health stating that the patient had elevated blood pressure in the 150 systolic. I sent a prescription to the patient's pharmacy after instructing the home health regarding starting the patient on additional chlorthalidone 25 mg p.o. daily. On the day of discharge, the patient was hemodynamically stable and neurologically at baseline. DISCHARGE PHYSICAL EXAMINATION: VITAL SIGNS: Unremarkable and the patient was using a wheelchair days prior to discharge with no issues. GENERAL: On exam, she was in no apparent distress. Awake and alert. HEART: Regular rate and rhythm. No murmurs, no gallops, no rubs. RESPIRATORY: Clear to auscultation bilaterally. No wheeze, no rales, no rhonchi. GASTROINTESTINAL: Soft, nontender, nondistended. Normal bowel sounds. EXTREMITIES: No edema. NEUROLOGICAL: On the left side, she was 3/5 in both upper and lower extremities, which per the patient was her baseline. On the right side, she was 5/5 throughout. PSYCHIATRIC: Normal affect. Normal behavior. Alert and oriented x3. Prior to the discharge, the patient and the patient's family at bedside were given significant education regarding the patient's habits with significant amphetamine abuse and possible consequences as well as instructions regarding her diagnoses and treatments. Job ID: [id number]
--- NOTE | 2019-11-01 22:01 | PQF ---
ANIVAL SAHNI JACOBO GREEN [id number] [facility] [id number] CLINICAL DOCUMENTATION CLARIFICATION FORM: POST DISCHARGE Addendum to original discharge summary date: ____ Late entry note date: __ DATE:11/01/2019 ATTN: JACOBO GREEN Please exercise your independent, professional judgment in responding to the clarification form. Clinical indicators are provided on the bottom of this form for your review Please check appropriate box(s) to clarify if the following diagnosis has been ruled in or ruled out:Cerebrovascular accident [ x ] Ruled in diagnosis [ ] Continue to treat [ ] Resolved [ ] Ruled out diagnosis [ ] Cannot rule out diagnosis [ ] Other diagnosis [ ] Unable to determine For continuity of documentation, please document condition throughout progress notes and discharge summary. Thank You. CLINICAL INDICATORS - SIGNS / SYMPTOMS / LABS Speech problems and left sided weakness-Documented in Consultation report on by Sarah Vaughn MD Her MRI does show left basal ganglia event based on the MRI finding on 10/19. She had acute lacune in the left basal ganglia. Which dose not explain the deficits that we are seeing of the left face , arm and lef weakness-Documented in Consultation report on 10/26 by Sarah Vaughn MD At this time the question seems to be about the localization of stroke. I suggested repeat MRI of the brain, Which i equested-Documented in Consultation report on 10/26 by Sarah Vaughn MD CVA,Currently at baseline neurologic state-Documented in hospitalist progress note on 10/27 by jacobo Green MD Pending MRI per neurology-Documented in hospitalist progress note on 10/27 by jacobo Green MD Repeat MRI (10/27) showing no acute event; per neurology , cerebrovascular event likely due to metamphetamine use and grossly elevated BP-Documented in hospitalist progress note on 10/28 by jacobo Green MD RISK FACTORS HTN-Documented in hospitalist progress note on 10/27 by jacobo Green MD TREATMENTS On aspirin and high dose statin-Documented in hospitalist progress note on by jacobo Green MD Brain MRI on 10/19 Brain MRI on 10/27 [employer] Win[employer] Viewer (This form is maintained as a part of the permanent medical record) 2014 [employer]. All Rights Reserved [email or web address] [phone]
== END 2019-10-30 16:54 | disposition home health service (06) | DRG 65 ==
LOC: ERS 10:11 → ERHOLD 12:44 → 2SE 18:00
PROVIDERS: ADMIT Internal Medicine; ATTEND Internal Medicine
DX: I63.9 Cerebral infarction, unspecified (principal); I69.351 Hemiplegia and hemiparesis following cerebral infarction affecting right dominant side; N17.9 Acute kidney failure, unspecified; F15.10 Other stimulant abuse, uncomplicated; I12.9 Hypertensive chronic kidney disease with stage 1 through stage 4 chronic kidney disease, or unspecified chronic kidney disease; N18.9 Chronic kidney disease, unspecified; R29.713 NIHSS score 13; Z98.51 Tubal ligation status; E78.5 Hyperlipidemia, unspecified; F17.200 Nicotine dependence, unspecified, uncomplicated; Z88.0 Allergy status to penicillin; J45.909 Unspecified asthma, uncomplicated; R47.1 Dysarthria and anarthria
CPT/HCPCS: 36415; 36416; 51701; 70450; 70496; 70498; 70551; 71045; 74230; 76770; 80048; 80053; 80061; 80306; 81001; 82550; 82570; 83735; 84300; 84484; 85025; 85610; 85730; 90471; 90686; 93005; 93306; 94640; 94760; 96374; A4353; G0008; J1650; J2060; J7620; Q9967

== ENCOUNTER 2024-09-25 10:41 | Inpatient (IN) | payer MEDICARE, OTHER, SELFPAY ==
[2024-09-25 11:08] LABS: Actual Bicarbonate (HCO3a) 20.4 mEq/L (22-28); Analyzer IN Cardio ER; Base Excess (BEa) -7.7 mEq/L (-2.0 to +3.0); CO2 Tension 54.2 mmHg (35.0-45.0); Carboxyhemoglobin (COHb) 0.1 gm% (0.0-3.0); Hematocrit-ABG 31 % (36.0-47.0); Hemoglobin (Hb) 10.4 g/dL (12.0-16.0); O2 Tension (PaO2), arterial 159.4 mmHg (> 80.0); Potassium - ABG Lab 4.09 mmol/L (3.70-5.30)
[2024-09-25] MEDS ORDERED: cefTRIAXone (ROCEPHIN) 2 GM VIAL ONE (11:10)
[2024-09-25 11:29] LABS: pH, Arterial 7.194 (7.35-7.45)
[2024-09-25 11:30] LABS: Puncture Site Left Radial artery
[2024-09-25] MEDS ORDERED: Albuterol 2.5 MG (3 mL) NEB ONE ×2 (11:33→15:18)
[2024-09-25 11:40] LABS: Hematocrit 34.5 % (36.0-47.0); Hemoglobin 9.9 g/dL (12.0-16.0); Mean Corpuscular HGB CONC 28.7 g/dL (32.0-36.0); Mean Corpuscular Hemoglobin 22.5 pg (27.0-31.0); Mean Corpuscular Volume 78.4 fL (78.0-98.0); Mean Platelet Volume 9.6 fL (7.4-10.4); Platelet Count 456 10x3/uL (130-400); RBC Distribution Width 18.9 % (11.5-14.5)
[2024-09-25 11:51] LABS: ALT (SGPT) 17 U/L (Less than 34); AST (SGOT) 51 U/L (11-34); Albumin 2.8 g/dL (3.1-4.5); Alkaline Phosphatase 79 U/L (40-110); Anion Gap 16 mmol/L (10-20); BUN (Urea Nitrogen) 51 mg/dL (9.8-20.1); Bilirubin, Total 0.2 mg/dL (0.3-1.2); Calc. Creatinine Clearance 0 mL/min (70-130); Calcium 9.8 mg/dL (7.8-10.44); Carbon Dioxide 21 mmol/L (23-31); Chloride 107 mmol/L (98-107); Estimated GFR 21; Globulin 5.9 g/dL (2.4-3.5); Glucose 178 mg/dL (80-115); Potassium 4.1 mmol/L (3.5-5.1); Protein, Total 8.7 g/dL (5.8-8.1); Sodium 140 mmol/L (136-145)
[2024-09-25 11:55] LABS: Troponin I 0.021 ng/mL (< 0.028)
[2024-09-25] MEDS ORDERED: KETAMINE 100 MG/ML (5ML VIAL) ONE (11:58)
[2024-09-25] MEDS ORDERED: NOREPINEPHRINE 8 MG/250 ML-D5W 0 ML ONE (11:58)
[2024-09-25 12:05] LABS: Band 11 % (5-11); Burr Cells SLIGHT = 2-5 cells HPF (0-1); Elliptocytes SLIGHT = 2-5 cells HPF (0-1); Hypochromia SLIGHT = 6-15 cells HPF (0-5); Lymphocytes 3 % (21-51); Monocytes 1 % (0-10); Neutrophil 85 % (42-75); Platelet Adequacy Comment Platelets Increased; Polychromasia SLIGHT = 2-3 cells HPF (0-2)
[2024-09-25] MEDS ORDERED: Furosemide 40 MG (4 mL) VIAL ONE (12:05)
[2024-09-25] MEDS ORDERED: Furosemide 20 MG (2 mL) VIAL ONE (12:05)
[2024-09-25] MEDS ORDERED: Rocuronium Bromide 10 MG/ML (10ML VIAL) ONE ×2 (12:19→15:17)
[2024-09-25] MEDS ORDERED: fentaNYL 50 mcg/mL 1 mL Vial ONE (12:24)
[2024-09-25 13:23] LABS: Actual Bicarbonate (HCO3a) 18.7 mEq/L (22-28); Analyzer IN Cardio ER; CO2 Tension 43.3 mmHg (35.0-45.0); Calcium, Ionized (arterial) 1.26 mmol/L (1.12-1.30); Carboxyhemoglobin (COHb) 0.4 gm% (0.0-3.0); Hematocrit-ABG 29 % (36.0-47.0); Hemoglobin (Hb) 9.9 g/dL (12.0-16.0); O2 Tension (PaO2), arterial 100.9 mmHg (> 80.0); Potassium - ABG Lab 3.79 mmol/L (3.70-5.30); pH, Arterial 7.253 (7.35-7.45)
[2024-09-25 13:27] LABS: Bilirubin Negative (Negative); Blood, Urine 2+ (Negative); CAUTI Indications for Culture Urological Procedure; Clarity Turbid (Clear); Glucose, Urine (Dipstick) Normal (Negative); Ketone, Urine Negative (Negative); Leukocyte Negative Leu/uL (Negative); Nitrite Negative (Negative); Protein, Urine (Dipstick) 100 mg/dL (Neg-Trace); RBC/HPF Greater than 50 HPF (0-3); Specific Gravity, Urine 1.016 (1.002-1.036); Urobilinogen Normal mg/dL (Less than 2); WBC/HPF 0-3 HPF (0-3)
[2024-09-25 13:27] LABS: ALV-art Gradient 130.175 mmHg (0-20); Puncture Site Left Brachial artery
[2024-09-25 13:28] LABS: Bacteria/HPF 1+ HPF (None Seen); Urine Culture Reflex Yes Yes
[2024-09-25] MEDS ORDERED: Propofol BOLUS 1,000 MG/100 ML VIAL IV PRN ×2 (13:30→15:45)
[2024-09-25] MEDS ORDERED: Propofol 1,000 MG/100 ML VIAL IV PRN (13:30)
[2024-09-25] MEDS ORDERED: NOREPINEPHRINE 8 MG/250 ML-D5W 250 ML IVPB SCH ×2 (13:45→14:00)
[2024-09-25] MEDS ORDERED: Acetaminophen 650 MG Suppository PR PRN (13:46)
[2024-09-25] MEDS ORDERED: Acetaminophen 325 MG TAB PO PRN (13:46)
[2024-09-25] MEDS ORDERED: Ondansetron PF 4 MG/2 ML Vial IVP PRN (13:46)
[2024-09-25] MEDS ORDERED: [UNRECOGNIZED DRUG - REMARK] FS PRN (13:46)
[2024-09-25] MEDS ORDERED: Dextrose 50% Abboject 50 ML SYRINGE SLOW IVP PRN (13:55)
[2024-09-25] MEDS ORDERED: Insulin Lispro 100 UNIT/ML 10 ML VIAL SC PRN (13:55)
[2024-09-25] MEDS ORDERED: Dextrose 5% in Water 1,000 ML IV PRN (13:55)
[2024-09-25] MEDS ORDERED: Glucagon 1 MG/ML KIT IM PRN (13:55)
[2024-09-25] MEDS ORDERED: Propofol 1,000 MG/100 ML VIAL IV ONE ×2 (14:29→15:12)
[2024-09-25 14:55] LABS: Hemoglobin A1c 5.2 % (4.0-6.0)
[2024-09-25] MEDS ORDERED: NOREPINEPHRINE 8 MG/250 ML-D5W 250 ML ONE (15:12)
[2024-09-25] MEDS ORDERED: Fentanyl BOLUS 250 ML IVPB PRN (15:45)
[2024-09-25] MEDS ORDERED: Morphine 2 MG/ML VIAL SLOW IVP PRN (15:45)
[2024-09-25] MEDS ORDERED: Fentanyl CADD 100 ML IV SCH (15:45)
[2024-09-25] MEDS ORDERED: DISCONTINUE PREVIOUS NARCOTIC PAIN MEDICATIONS AND BENZODIAZEPINES FS SCH (15:45)
[2024-09-25] MEDS: Vancomycin (BATCH) 1.75 GM in Premix 1 BAG IVPB SCH (17:42)
[2024-09-25] MEDS: cefTRIAXone\\ROCEPHIN 2 GM in Sodium Chloride 0.9% 100 ML IVPB SCH (17:44)
[2024-09-25] MEDS: Ventilator Sedation Protocol 1 EACH FS ONE (17:44)
[2024-09-25] MEDS: Heparin 5,000 UNITS/ML VIAL SC SCH (17:44)
[2024-09-25] MEDS: methylPREDNISolone Sod Succ 40 MG VIAL IVP SCH (17:54)
[2024-09-25 17:56] LABS: Amphetamine Not Detected (NotDetected); Barbiturates Screen Not Detected (NotDetected); Benzodiazepine Screen Not Detected (NotDetected); Cocaine Metabolite Screen Not Detected (NotDetected); Methadone Not Detected (NotDetected); Methamphetamine Not Detected (NotDetected); Opiate Screen Not Detected (NotDetected); Oxycodone Screen Not Detected (NotDetected); Phencyclidine (PCP) Not Detected (NotDetected); THC/Cannabinoid Screen Not Detected (NotDetected); Tricyclic Screen Not Detected (NotDetected)
[2024-09-25] MEDS: Aspirin 300 MG Suppository PR SCH (18:02)
[2024-09-25 18:33] LABS: Creatinine, Urine 105.91 mg/dL (15.00-278.00)
[2024-09-25] MEDS ORDERED: Furosemide 40 MG (4 mL) VIAL SLOW IVP SCH (20:00)
[2024-09-25] MEDS: Insulin Lispro 100 UNIT/ML 10 ML VIAL SC PRN (20:32)
[2024-09-25] MEDS: Propofol 1,000 MG/100 ML VIAL IV PRN (21:26)
[2024-09-26 05:23] LABS: Anion Gap 20 mmol/L (10-20); BUN (Urea Nitrogen) 66 mg/dL (9.8-20.1); Calc. Creatinine Clearance 29 mL/min (70-130); Calcium 8.8 mg/dL (7.8-10.44); Carbon Dioxide 17 mmol/L (23-31); Chloride 110 mmol/L (98-107); Estimated GFR 18; Glucose 113 mg/dL (80-115); Potassium 4.7 mmol/L (3.5-5.1); Sodium 142 mmol/L (136-145)
[2024-09-26] MEDS: Levothyroxine Sodium 100 MCG TAB PO SCH (06:24)
[2024-09-26] MEDS: Lorazepam 2 MG/ML VIAL SLOW IVP PRN (07:30)
[2024-09-26] MEDS: Fentanyl CADD 100 ML IV SCH (07:35)
[2024-09-26] MEDS: Pantoprazole 40 MG VIAL IVP SCH (20:51)
[2024-09-27 06:35] LABS: Anion Gap 16 mmol/L (10-20); BUN (Urea Nitrogen) 79 mg/dL (9.8-20.1); Calc. Creatinine Clearance 32 mL/min (70-130); Calcium 9.4 mg/dL (7.8-10.44); Carbon Dioxide 20 mmol/L (23-31); Chloride 112 mmol/L (98-107); Estimated GFR 21; Glucose 119 mg/dL (80-115); Potassium 4.4 mmol/L (3.5-5.1); Sodium 144 mmol/L (136-145)
[2024-09-27 06:47] LABS: Hematocrit 28.1 % (36.0-47.0); Hemoglobin 8.3 g/dL (12.0-16.0); Mean Corpuscular HGB CONC 29.5 g/dL (32.0-36.0); Mean Corpuscular Hemoglobin 22.8 pg (27.0-31.0); Mean Corpuscular Volume 77.2 fL (78.0-98.0); Mean Platelet Volume 10.2 fL (7.4-10.4); Platelet Count 458 10x3/uL (130-400); RBC Distribution Width 19.4 % (11.5-14.5); Red Blood Cell (RBC) Count 3.64 mill/uL (4.20-5.40)
[2024-09-27 07:17] LABS: Anisocytosis SLIGHT = 6-15 cells HPF (0-5); Band 1 % (5-11); Hypochromia SLIGHT = 6-15 cells HPF (0-5); Lymphocytes 6 % (21-51); Macrocytosis SLIGHT = 6-15 cells HPF (0-5); Monocytes 3 % (0-10); Myelocyte 1 % (0-0); Neutrophil 87 % (42-75); Platelet Adequacy Comment Platelets Normal; Polychromasia SLIGHT = 2-3 cells HPF (0-2)
[2024-09-27 08:19] LABS: Actual Bicarbonate (HCO3a) 22.4 mEq/L (22-28); Base Excess (BEa) -3.3 mEq/L (-2.0 to +3.0); CO2 Tension 42.6 mmHg (35.0-45.0); Calcium, Ionized (arterial) 1.26 mmol/L (1.12-1.30); Carboxyhemoglobin (COHb) 0.5 gm% (0.0-3.0); Hematocrit-ABG 28 % (36.0-47.0); Hemoglobin (Hb) 9.4 g/dL (12.0-16.0); pH, Arterial 7.338 (7.35-7.45)
[2024-09-27 08:21] LABS: Puncture Site Left Brachial artery
[2024-09-27] MEDS: Dexmedetomidine In 0.9 % NaCl 100 ML IVPB SCH (08:25)
[2024-09-27] MEDS: Sodium Chloride 0.45% 1,000 ML IV SCH (08:25)
[2024-09-27] MEDS: Nicotine 21 MG PATCH TOP SCH (10:30)
[2024-09-27] MEDS: Aspirin Chewable 81 MG TAB PO SCH (14:00)
[2024-09-27 14:46] VITALS: BMI 31.2
[2024-09-27] MEDS: diphenhydrAMINE 50 MG/ML VIAL IVP SCH (22:01)
[2024-09-28 06:02] LABS: Anion Gap 18 mmol/L (10-20); BUN (Urea Nitrogen) 79 mg/dL (9.8-20.1); Calc. Creatinine Clearance 41 mL/min (70-130); Calcium 9.2 mg/dL (7.8-10.44); Carbon Dioxide 19 mmol/L (23-31); Chloride 110 mmol/L (98-107); Estimated GFR 29; Glucose 105 mg/dL (80-115); Potassium 4.2 mmol/L (3.5-5.1); Sodium 143 mmol/L (136-145)
[2024-09-28 06:11] LABS: #Basophils Less than 0.03 10x3/uL (0.0-0.2); #Eosinophils Less than 0.03 10x3/uL (0.0-0.7); %Basophils 0.3 % (0.0-1.0); %Lymphocytes 11.9 % (21.0-51.0); %Monocytes 5.5 % (0.0-10.0); Hematocrit 31.4 % (36.0-47.0); Hemoglobin 9.1 g/dL (12.0-16.0); Mean Corpuscular Hemoglobin 22.6 pg (27.0-31.0); Mean Corpuscular Volume 78.1 fL (78.0-98.0); Mean Platelet Volume 10.4 fL (7.4-10.4); Platelet Count 450 10x3/uL (130-400); RBC Distribution Width 19.3 % (11.5-14.5); Red Blood Cell (RBC) Count 4.02 mill/uL (4.20-5.40)
[2024-09-28 06:38] VITALS: BMI 30.7
[2024-09-28] MEDS: Aspirin Chewable 81 MG TAB PO SCH (09:11)
[2024-09-28] MEDS ORDERED: Albuterol 200 PUFF INH INH PRN (09:33)
[2024-09-28] MEDS: Ipratropium/Albuterol 3 ML NEB NEB SCH (11:03)
[2024-09-28] MEDS: Azithromycin 250 MG TAB PO SCH (12:19)
[2024-09-28] MEDS: methylPREDNISolone Sod Succ 40 MG VIAL IVP SCH (12:19)
[2024-09-28] MEDS ORDERED: Ipratropium Bromide 2.5 ml Neb NEB SCH (19:00)
[2024-09-29 06:10] LABS: Hematocrit 27.2 % (36.0-47.0); Hemoglobin 7.8 g/dL (12.0-16.0); Mean Corpuscular HGB CONC 28.7 g/dL (32.0-36.0); Mean Corpuscular Hemoglobin 22.3 pg (27.0-31.0); Mean Corpuscular Volume 77.7 fL (78.0-98.0); Platelet Count 490 10x3/uL (130-400); RBC Distribution Width 19.1 % (11.5-14.5)
[2024-09-29 06:17] LABS: Anion Gap 13 mmol/L (10-20); BUN (Urea Nitrogen) 63 mg/dL (9.8-20.1); Calc. Creatinine Clearance 53 mL/min (70-130); Calcium 8.9 mg/dL (7.8-10.44); Carbon Dioxide 22 mmol/L (23-31); Chloride 112 mmol/L (98-107); Estimated GFR 39; Glucose 134 mg/dL (80-115); Potassium 3.8 mmol/L (3.5-5.1); Sodium 143 mmol/L (136-145)
[2024-09-29 06:57] LABS: Anisocytosis SLIGHT = 6-15 cells HPF (0-5); Band 1 % (5-11); Hypochromia SLIGHT = 6-15 cells HPF (0-5); Large Platelets 7.9 % (0-5); Lymphocytes 11 % (21-51); Metamyelocyte 1 % (0-0); Monocytes 4 % (0-10); Neutrophil 80 % (42-75); Nucleated RBC (Manual Ct) 1 % (0); Ovalocytes SLIGHT = 2-5 cells HPF (0-1); Platelet Adequacy Comment Platelets Normal; Polychromasia SLIGHT = 2-3 cells HPF (0-2); Promyelocytes 1 % (0-0); Reactive Lymphocytes 2 % (0-10); Smudge Cells 5.9 %; Target Cells SLIGHT = 2-5 cells HPF (0-1)
[2024-09-29] MEDS: Azithromycin 250 MG TAB PO SCH (08:49)
[2024-09-29 11:14] LABS: Iron 53 ug/dL (50-170); Iron Binding Capacity, Total 266 mcg/dL (265-497)
[2024-09-29] MEDS: Albumin 25% 25 GM (100 mL) BOT IVPB SCH (12:28)
[2024-09-29] MEDS: Mometasone 200 MCG/Formoterol 5 MCG 120 PUFF INHALER INH SCH ×2 (15:51→19:21)
[2024-09-29] MEDS: Ipratropium/Albuterol 3 ML NEB NEB PRN (19:24)
[2024-09-29] MEDS: Montelukast Sodium 10 mg Tablet PO SCH (20:31)
[2024-09-30 07:28] LABS: Hematocrit 26.6 % (36.0-47.0); Hemoglobin 7.8 g/dL (12.0-16.0); Mean Corpuscular HGB CONC 29.3 g/dL (32.0-36.0); Mean Corpuscular Hemoglobin 22.9 pg (27.0-31.0); Mean Corpuscular Volume 78.2 fL (78.0-98.0); Platelet Count 497 10x3/uL (130-400); RBC Distribution Width 18.9 % (11.5-14.5)
[2024-09-30 07:40] LABS: Anion Gap 15 mmol/L (10-20); BUN (Urea Nitrogen) 44 mg/dL (9.8-20.1); Calc. Creatinine Clearance 74 mL/min (70-130); Calcium 9.3 mg/dL (7.8-10.44); Carbon Dioxide 22 mmol/L (23-31); Chloride 111 mmol/L (98-107); Estimated GFR 58; Glucose 116 mg/dL (80-115); Potassium 3.8 mmol/L (3.5-5.1); Sodium 144 mmol/L (136-145)
[2024-09-30 09:06] LABS: Band 5 % (5-11); Hypochromia MODERATE=16-30 cells HPF (0-5); Large Platelets 1.9 % (0-5); Lymphocytes 15 % (21-51); Metamyelocyte 3 % (0-0); Microcytosis MODERATE=15-30 cells HPF (0-5); Monocytes 14 % (0-10); Neutrophil 63 % (42-75); Nucleated RBC (Manual Ct) 5 % (0); Platelet Adequacy Comment Platelets Increased; Polychromasia SLIGHT = 2-3 cells HPF (0-2); Schistocytes SLIGHT = 2-5 cells HPF (0-1); Smudge Cells 6.7 %; Target Cells SLIGHT = 2-5 cells HPF (0-1)
[2024-09-30] MEDS: methylPREDNISolone Sod Succ 40 MG VIAL IVP SCH (09:54)
[2024-09-30] MEDS: Pantoprazole 40 MG DR.TAB PO SCH (22:43)
[2024-10-01 06:01] LABS: Hematocrit 33.5 % (36.0-47.0); Hemoglobin 9.7 g/dL (12.0-16.0); Mean Corpuscular Hemoglobin 22.9 pg (27.0-31.0); Mean Platelet Volume 9.5 fL (7.4-10.4); Platelet Count 561 10x3/uL (130-400); RBC Distribution Width 19.9 % (11.5-14.5); Red Blood Cell (RBC) Count 4.24 mill/uL (4.20-5.40)
[2024-10-01 06:11] LABS: Anion Gap 14 mmol/L (10-20); BUN (Urea Nitrogen) 41 mg/dL (9.8-20.1); Calc. Creatinine Clearance 75 mL/min (70-130); Calcium 9.3 mg/dL (7.8-10.44); Carbon Dioxide 24 mmol/L (23-31); Chloride 109 mmol/L (98-107); Estimated GFR 59; Glucose 86 mg/dL (80-115); Potassium 3.9 mmol/L (3.5-5.1); Sodium 143 mmol/L (136-145)
[2024-10-01 06:59] LABS: Anisocytosis MODERATE=16-30 cells HPF (0-5); Band 3 % (5-11); Hypochromia SLIGHT = 6-15 cells HPF (0-5); Large Platelets 4.9 % (0-5); Lymphocytes 15 % (21-51); Metamyelocyte 2 % (0-0); Monocytes 7 % (0-10); Myelocyte 1 % (0-0); Neutrophil 66 % (42-75); Nucleated RBC (Manual Ct) 5 % (0); Ovalocytes SLIGHT = 2-5 cells HPF (0-1); Platelet Adequacy Comment Platelets Increased; Poikilocytosis MODERATE=16-30 cells HPF (0-5); Polychromasia MODERATE = 3-4 cells HPF (0-2); Promyelocytes 3 % (0-0); Reactive Lymphocytes 4 % (0-10); Smudge Cells 6.9 %; Stomatocytes SLIGHT = 2-5 cells HPF (0-1); Target Cells SLIGHT = 2-5 cells HPF (0-1); Tear Drops SLIGHT = 2-5 cells HPF (0-1); Vacuoles SLIGHT
[2024-10-01 12:33] VITALS: BP 162/99
[2024-10-01 13:13] VITALS: TEMP 98.3
== END 2024-10-01 16:45 | disposition home or self-care (01) | DRG 208 ==
LOC: ERS 10:41 → CCU 13:16 → SURG B 09-28 15:02
PROVIDERS: ADMIT Family Medicine; ATTEND Internal Medicine
PROC: 5A1945Z Respiratory Ventilation, 24-96 Consecutive Hours (ICD-10-PCS; principal; 2024-09-25)
PROC: 4A033R1 Measurement of Arterial Saturation, Peripheral, Percutaneous Approach (ICD-10-PCS; 2024-09-25)
PROC: 30233J1 Transfusion of Nonautologous Serum Albumin into Peripheral Vein, Percutaneous Approach (ICD-10-PCS; 2024-09-29)
DX: J96.01 Acute respiratory failure with hypoxia (principal); G93.40 Encephalopathy, unspecified; I69.351 Hemiplegia and hemiparesis following cerebral infarction affecting right dominant side; J44.1 Chronic obstructive pulmonary disease with (acute) exacerbation; E87.4 Mixed disorder of acid-base balance; N17.9 Acute kidney failure, unspecified; J96.02 Acute respiratory failure with hypercapnia; E03.9 Hypothyroidism, unspecified; F17.210 Nicotine dependence, cigarettes, uncomplicated; F10.90 Alcohol use, unspecified, uncomplicated; E78.5 Hyperlipidemia, unspecified; D63.1 Anemia in chronic kidney disease; I12.9 Hypertensive chronic kidney disease with stage 1 through stage 4 chronic kidney disease, or unspecified chronic kidney disease; N18.9 Chronic kidney disease, unspecified; F15.90 Other stimulant use, unspecified, uncomplicated; Z88.0 Allergy status to penicillin; Z79.890 Hormone replacement therapy; Z79.899 Other long term (current) drug therapy; Z98.51 Tubal ligation status
CPT/HCPCS: 31500; 36415; 36416; 36556; 36600; 51702; 71045; 80048; 80053; 80306; 80307; 81001; 82570; 82728; 82805; 83036; 83540; 83550; 83605; 83880; 84156; 84443; 84484; 85025; 87040; 87086; 87428; 93306; 94002; 94003; 94640; 94660; 94664; 94760; 96361; 96365; 96366; 96367; 96375; J0696; J1200; J1644; J1815; J1940; J2060; J2470; J2704; J2919; J3010; J3370; J7611; J7620; P9047